=== PATIENT | female | born 1965 | race Caucasian/White ===

== ENCOUNTER 2024-06-18 07:17 | Emergency (ER) | payer OTHER, SELFPAY ==
[2024-06-18 07:20] VITALS: BP 154/60; PULSE 81; RESP 15; TEMP 37.2; O2SAT 96
[2024-06-18 07:26] VITALS: BP 154/60; PULSE 81; RESP 15; TEMP 37.2; O2SAT 96
--- NOTE | 2024-06-18 08:35 | ED.GENADUL_ITS ---
Discharge Plan Disposition Patient Disposition: Home Condition: Stable Discharge Details Clinical Impression: URI (upper respiratory infection) Primary Care Provider: Unknown,Unknown ED Provider: Lou Gutierrez Home Meds and New Rx's Prescriptions: No Action fluoxetine 20 mg tablet 20 mg PO DAILY Discharge Instructions Instructions: Upper Respiratory Infection ED Additional Instructions: Flu and COVID testing today are negative. Please continue [id number] supportive care medications like Mucinex, TheraFlu. Take Motrin and Tylenol as needed for any fever or bodyaches. Make sure you are drinking lots of fluids. Follow-up with primary care as needed. HPI General Date/Time Provider Initiated Documentation: 06/18/24 07:55 . Limitations to Documentation: no limitations . Information obtained by: patient . HPI Narrative: 58-year-old female without significant past medical history presents for evaluation of URI symptoms. Symptoms have been ongoing for the last several days, but seem to have worsened overnight. Developed a fever overnight. Reports ear pain and fullness, nasal congestion, sore throat and bodyaches. No vomiting or diarrhea. No significant cough or shortness of breath. Has not been taking any [id number] medication for relief. Daughter has similar symptoms and is a patient in the emergency department as well. Related Data Home Medications ?Medication ?Instructions ?Recorded ?Confirmed fluoxetine 20 mg tablet 20 mg PO DAILY 06/01/20 06/18/24 Allergies Allergy/AdvReac Type Severity Reaction Status Date / Time No Known Allergies Allergy Verified 06/18/24 07:32 General Stated Complaint: RespSymp LAURI: 4 Exam Narrative Exam Narrative: Review of Systems: All systems reviewed & are unremarkable except as noted in HPI and below Well-developed, no acute distress NCAT PERRL, normal conjunctiva bilateral TMs with clear effusion, no erythema or bulging Mild posterior oropharynx erythema without tonsillar enlargement or exudate, mild shotty cervical adenopathy RRR Unlabored respiratory effort, clear bilaterally Course Vital Signs Vital signs: Vital Signs Temperature 37.2 C 06/18/24 07:20 Pulse 81 06/18/24 07:20 Respiratory Rate 15 06/18/24 07:20 Blood Pressure 154/60 H 06/18/24 07:20 Pulse Oximetry 96 06/18/24 07:20 Temperature 37.2 C 06/18/24 07:26 Temperature Source Oral 06/18/24 07:26 Pulse 81 06/18/24 07:26 Respiratory Rate 15 06/18/24 07:26 Respiratory Effort Normal 06/18/24 07:33 Respiratory Depth Normal 06/18/24 07:33 Blood Pressure 154/60 H 06/18/24 07:26 Blood Pressure Position Sitting 06/18/24 07:26 Pulse Oximetry 96 06/18/24 07:26 Oxygen Delivery Method Room Air 06/18/24 07:26 Oxygen Flow Rate 0 06/18/24 07:26 Pain Level 8 06/18/24 07:26 Medical Decision Making Emergent evaluation of URI symptoms. Patient is afebrile and hemodynamically stable. Initial differential includes viral illness, sinusitis, doubt pneumonia. Patient has no signs of respiratory distress and has a benign physical examination. Viral testing in the emergency department today was negative. Advise regarding clinical course of viruses and supportive care at home was discussed with the patient and recommend close follow-up with PCP as needed. Quality:SDOH Health Related Social Needs: No Data to Display PFSH All Active Problems (Updated 06/18/24 @ 07:56 by Lou Gutierrez MD) URI (upper respiratory infection) (Acute) Encounter for IUD removal (Acute) 05/2020 Social History Smoking/Tobacco Use Status: Never Smoking risk assessment performed?: Yes Alcohol Intake: never Drug use: Never Substance use type: does not use Housing: house
== END 2024-06-18 08:18 | disposition home or self-care (01) ==
LOC: ER 08:35
PROVIDERS: Emergency Provider Emergency Medicine
DX: J06.9 Acute upper respiratory infection, unspecified (principal)
CPT/HCPCS: 99283; 99282